=== PATIENT | female | born 1950 | race Asian ===

== ENCOUNTER 2020-08-24 23:47 | Emergency (ER) | payer OTHER ==
[~2020-08-24] VITALS: Ht 167.6 cm; Wt 113.4 kg
[~2020-08-24 23:47] MED LIST: NUEDEXTA PO
[2020-08-24 23:54] VITALS: BP 123/59; TEMP 98.1
[2020-08-25 00:23] LABS: PLATELET COUNT 264 K/uL (152-353)
[2020-08-25 00:28] LABS: POTASSIUM 3.5 mmol/L (3.6-5.2)
[2020-08-25] MEDS ORDERED: LORA1TAB17 PO (02:04)
[2020-08-25] MEDS ORDERED: BENZ1TAB43 PO (02:07)
[2020-08-25] MEDS ORDERED: DIVA250T2 PO (02:10)
[2020-08-25] MEDS ORDERED: DIVA500T2 PO (02:12)
[2020-08-25] MEDS ORDERED: HYDROXYZINE HCL (02:17)
[2020-08-25] MEDS ORDERED: MAGN400T4 PO ×2 (02:23→02:28)
[2020-08-25] MEDS ORDERED: NAMENDA5 MG PO (02:25)
[2020-08-25] MEDS ORDERED: NOVOLIN 70/30 F1 INJ SC (02:31)
[2020-08-25] MEDS ORDERED: INSUINJ20 SC (02:34)
[2020-08-25] MEDS ORDERED: NUEDEXTA PO (02:40)
[2020-08-25] MEDS ORDERED: POTASSIUM CHLO20 ME1 PO (02:45)
[2020-08-25] MEDS ORDERED: RISPERDAL4 MG PO (02:48)
[2020-08-25] MEDS ORDERED: RISPERDAL3 MG PO (02:50)
[2020-08-25] MEDS ORDERED: LEVO0.08 PO (02:52)
[2020-08-25] MEDS ORDERED: TRICOR145 M1 PO (02:54)
[2020-08-25] MEDS ORDERED: ZYPREXA ZYDI20 MG PO (02:56)
== END 2020-08-25 01:15 | disposition other institution (70) ==
LOC: ED 23:47
PROVIDERS: Family Medicine
DX: G30.8 Other Alzheimer's disease (principal); F02.81 Dementia in other diseases classified elsewhere, unspecified severity, with behavioral disturbance; E87.6 Hypokalemia; Z04.6 Encounter for general psychiatric examination, requested by authority
CPT/HCPCS: 36415; 80053; 85027; 93005; 99285

== ENCOUNTER 2021-08-22 23:05 | Emergency (ER) | payer OTHER ==
[~2021-08-22] VITALS: Ht 165.1 cm; Wt 93.4 kg
[~2021-08-22 23:05] MED LIST changes: +BENZ1TAB43 PO; +CHOL100034 PO; +DIVA250T PO; +DIVA250T2 PO; +DIVA500T2 PO; +FOLI1TAB26 PO; +HYDROXYZINE HCL; +INSUINJ20 SC; +LEVO0.08 PO; +LORA1TAB17 PO; +MAGN400T4 PO; +MEMA10TA2 PO; +NAMENDA5 MG PO; +NOVOLIN 70/30 F1 INJ SC; +OLANZAPINE10 MG PO; +POTASSIUM CHLO20 ME1 PO; +RISP1TAB PO; +RISP50IN IM; +RISPERDAL3 MG PO; +RISPERDAL4 MG PO; +TRICOR145 M1 PO; +ZYPREXA ZYDI20 MG PO
[2021-08-22 23:46] LABS: PLATELET COUNT 275 K/uL (152-353)
[2021-08-22 23:50] LABS: POTASSIUM 4.6 mmol/L (3.6-5.2)
[2021-08-23 00:15] VITALS: BP 134/60; TEMP 98.1
[2021-08-23] MEDS ORDERED: THERA-D4000 UNIT PO (01:09)
[2021-08-23] MEDS ORDERED: FERROUS SULF324 MG PO (01:11)
[2021-08-23] MEDS ORDERED: FLUOXETINE20 MG PO (01:13)
[2021-08-23] MEDS ORDERED: KP FOLIC ACID1 MG PO (01:13)
[2021-08-23] MEDS ORDERED: FURO40TA93 PO (01:16)
[2021-08-23] MEDS ORDERED: HALO5TAB10 PO ×2 (01:18→01:21)
[2021-08-23] MEDS ORDERED: LANTUS100 UNIT/M SC (01:23)
[2021-08-23] MEDS ORDERED: THIA100T8 PO (01:25)
[2021-08-23] MEDS ORDERED: DIVA500T2 PO (01:26)
[2021-08-23] MEDS ORDERED: METF500T PO (01:27)
[2021-08-23] MEDS ORDERED: TYLENOL325 MG PO (01:29)
[2021-08-23] MEDS ORDERED: BISACODYL LAXAT10 MG RE (01:30)
[2021-08-23] MEDS ORDERED: HYDROXYZINE HYD25 MG PO (01:32)
[2021-08-23] MEDS ORDERED: MAGNSUS68 PO (01:33)
[2021-08-23] MEDS ORDERED: POLYETHYLE17 GM/SCO1 PO (01:34)
== END 2021-08-23 00:30 | disposition other institution (70) ==
LOC: ED 23:05
PROVIDERS: Emergency Medicine
DX: G30.8 Other Alzheimer's disease (principal); F02.81 Dementia in other diseases classified elsewhere, unspecified severity, with behavioral disturbance; R45.1 Restlessness and agitation; E11.9 Type 2 diabetes mellitus without complications; Z79.4 Long term (current) use of insulin; Z11.52 Encounter for screening for COVID-19; Z04.6 Encounter for general psychiatric examination, requested by authority
CPT/HCPCS: 36415; 80053; 85027; 87635; 93005; 96372; 99283; J1630; U0003

== ENCOUNTER 2022-07-01 15:33 | Emergency (ER) | payer OTHER ==
[~2022-07-01] VITALS: Ht 172.7 cm; Wt 96.6 kg
[~2022-07-01 15:33] MED LIST changes: +BISACODYL LAXAT10 MG RE; +CYAN10009 IM; +DIVALPROEX500 MG PO; +FERROUS SULF324 MG PO; +FLUOXETINE20 MG PO; +FURO40TA93 PO; +HALO5TAB10 PO; +HYDROXYZINE HYD25 MG PO; +KP FOLIC ACID1 MG PO; +LANTUS100 UNIT/M SC; +MAGNSUS68 PO; +METF500T PO; +OXCARBAZEPIN300 MG PO; +POLYETHYLE17 GM/SCO1 PO; +THERA-D4000 UNIT PO; +THIA100T8 PO; +TYLENOL325 MG PO
[2022-07-01 15:39] VITALS: BP 173/70; TEMP 97.2
[2022-07-01 16:11] LABS: PLATELET COUNT 304 K/uL (152-353)
[2022-07-01 16:20] LABS: POTASSIUM 4.2 mmol/L (3.6-5.2)
[2022-07-01] MEDS ORDERED: VITAMIN D1000 UNI1 PO (18:25)
[2022-07-01] MEDS ORDERED: VITAMIN DE1000 MCG/M IM (18:28)
[2022-07-01] MEDS ORDERED: TRICOR145 M1 PO (18:29)
[2022-07-01] MEDS ORDERED: FOLI1TAB26 PO (18:30)
[2022-07-01] MEDS ORDERED: FURO40TA93 PO (18:31)
[2022-07-01] MEDS ORDERED: HALO50IN4 IM (18:32)
[2022-07-01] MEDS ORDERED: LANTUS100 UNIT/M SC (18:33)
[2022-07-01] MEDS ORDERED: GERITOL PO (18:36)
[2022-07-01] MEDS ORDERED: EUTHYROX88 MCG PO (18:37)
[2022-07-01] MEDS ORDERED: MAGOX 400400 M1 PO (18:38)
[2022-07-01] MEDS ORDERED: FLUOXETINE40 MG PO (18:40)
[2022-07-01] MEDS ORDERED: ZYPREXA ZYDI20 MG PO (18:40)
[2022-07-01] MEDS ORDERED: B-1100 MG PO (18:41)
[2022-07-01] MEDS ORDERED: DIVALPROEX500 M1 PO (18:46)
[2022-07-01] MEDS ORDERED: MIRALAX17 GM PO (18:48)
[2022-07-01] MEDS ORDERED: HALO5TAB10 PO (18:49)
[2022-07-01] MEDS ORDERED: METFORMIN HYDR850 MG PO (18:50)
[2022-07-01] MEDS ORDERED: TRILEPTAL300 MG PO (18:53)
[2022-07-01] MEDS ORDERED: KLOR-CON M2020 MEQ PO (18:54)
[2022-07-01] MEDS ORDERED: GLUCAGON1 M1 SC (18:56)
[2022-07-01] MEDS ORDERED: HALO5INJ3 IM (18:57)
== END 2022-07-01 17:06 | disposition still patient (30) ==
LOC: ED 15:33
PROVIDERS: Emergency Medicine Emergency Medical Services
DX: F91.8 Other conduct disorders (principal); Z00.8 Encounter for other general examination; F03.90 Unspecified dementia, unspecified severity, without behavioral disturbance, psychotic disturbance, mood disturbance, and anxiety; E11.9 Type 2 diabetes mellitus without complications; Z11.52 Encounter for screening for COVID-19
CPT/HCPCS: 80053; 85027; 87635; 93005; 99283; U0003